=== PATIENT | female | born 1960 | race American Indian/Alaskan Native ===

== ENCOUNTER 2016-09-06 13:51 | Outpatient (CLI) | payer BC ==
--- NOTE | 2016-09-09 08:58 | Mammography Report ---
BILATERAL DIGITAL SCREENING MAMMOGRAM with CAD: 09/06/16 13:51:00 CLINICAL: Routine screening. COMPARISON:01/12/15 FINDINGS: The breasts are heterogeneously dense, which may obscure small masses. No mass, architectural distortion or suspicious calcifications. IMPRESSION: No mammographic evidence of malignancy. BI-RADS CATEGORY: 1 - - Negative RECOMMENDATION: Routine mammographic screening in one year. COMMENT: Patient follow-up letters are generated by our [employer] application.
== END 2016-09-06 13:52 | disposition home or self-care (01) ==
LOC: SPVWC 13:51
PROVIDERS: ATTEND Nurse Practitioner Women's Health
DX: Z12.31 Encounter for screening mammogram for malignant neoplasm of breast (principal)
CPT/HCPCS: 77067; G0202

== ENCOUNTER 2018-01-05 14:02 | Outpatient (CLI) | payer OTHER ==
--- NOTE | 2018-01-06 13:12 | Mammography Report ---
BILATERAL DIGITAL SCREENING MAMMOGRAM with CAD: 01/05/18 14:02:00 CLINICAL: Routine screening. COMPARISON:09/06/16 FINDINGS: The breasts are heterogeneously dense, which may obscure small masses. No mass, architectural distortion or suspicious calcifications. IMPRESSION: No mammographic evidence of malignancy. BI-RADS CATEGORY: 1 - - Negative RECOMMENDATION: Routine mammographic screening in one year. COMMENT: Patient follow-up letters are generated by our [employer] application.
== END 2018-01-05 14:03 | disposition home or self-care (01) ==
LOC: SPVWC 14:02
PROVIDERS: ATTEND Nurse Practitioner Women's Health
DX: Z12.31 Encounter for screening mammogram for malignant neoplasm of breast (principal)
CPT/HCPCS: 77067

== ENCOUNTER 2021-01-03 12:52 | Outpatient (CLI) | payer OTHER ==
--- NOTE | 2021-01-03 17:12 | Mammography Report ---
DIGITAL SCREENING MAMMOGRAM WITH CAD, 01/03/2021 CLINICAL INFORMATION / INDICATION: Routine screening mammography. SCREENING MAMMO Z12.31 TECHNIQUE: Digital bilateral 2D mammography was obtained in the craniocaudal and mediolateral obliqu e projections. This examination was interpreted with the benefit of Computer-Aided Detection analysis . COMPARISON: 01/05/2018 FINDINGS: Breast Density: The breasts are heterogeneously dense, which may obscure small masses. No dominant mass, suspicious calcifications, or architectural distortion in the right breast. There is a focal asymmetric density in the 11:00 position of the left breast which measures approxima tely 12 mm. IMPRESSION: Further evaluation of focal asymmetric density on the left is recommended. Follow up recommendation: Ultrasound with possible spot compression views. BI-RADS Category 0: Incomplete. Needs additional imaging evaluation and/or prior mammograms for savanna hale. A "normal" or negative report should not discourage follow up or biopsy of a clinically significant f inding. A written summary of these findings will be mailed to the patient. The patient will be entered into a mammography reporting system which will generate a reminder letter for the patient's next appointmen t at the appropriate interval. The [employer] recommends yearly mammograms starting at age 40 and continuing as l ann as a woman is in good health. Breast MRI is recommended for women with an approximate 20-25% or greater lifetime risk of breast cancer, including women with a strong family history of breast or ova tomy cancer or who have been treated for Hodgkin's disease. Signer Name: Benedict Deluca MD Signed: 01/03/2021 5:08 PM Workstation Name: [id number]
== END 2021-01-03 12:53 | disposition home or self-care (01) ==
LOC: SPVWC 12:52
PROVIDERS: ATTEND Family Medicine
DX: Z12.31 Encounter for screening mammogram for malignant neoplasm of breast (principal)
CPT/HCPCS: 77067

== ENCOUNTER 2021-01-23 09:12 | Outpatient (CLI) | payer OTHER ==
--- NOTE | 2021-01-23 10:07 | Ultrasound Report ---
LEFT BREAST ULTRASOUND INDICATION: Evaluate finding noted previously in the left breast on the recent screening mammogram. COMPARISON: 01/03/2021, 01/05/2018. FINDINGS: Targeted ultrasound focused in the left upper inner breast was performed to evaluate the si te of a previously noted finding which was seen on the recent screening mammogram. There is an oval l obulated 8 x 10 x 5 mm hypoechoic lesion located at the 11:00 position, 7 cm from the nipple. This wo uld appear to correspond with the mammographic finding. This does not demonstrate the appearance of a benign simple cyst. Ultrasound guided core biopsy is recommended. IMPRESSION: Left breast lesion at 11:00 position for which ultrasound-guided biopsy recommended. BI-RADS Category 4: Suspicious for Malignancy. Signer Name: Barry Ordaz MD Signed: 01/23/2021 10:03 AM Workstation Name: [id number]
--- NOTE | 2021-01-23 13:22 | Mammography Report ---
DEXA BONE DENSITY SCAN INDICATION: MENOPAUSE Z78.0. COMPARISON: None. LUMBAR SPINE (L1-L4): Bone mineral density (BMD) is 0.986 g/cm2. T-score is -1.5 (standard deviations of Young Adult mean). Z-score is -0.1 (standard deviations of Age Matched mean). LEFT FEMORAL NECK: Bone mineral density (BMD) is 0.891 g/cm2. T-score is -0.9 (standard deviations of Young Adult mean). Z-score is -0.2 (standard deviations of Age Matched mean). IMPRESSION: WHO Classification: Osteopenia. Fracture Risk: Increased. Signer Name: Barry Ordaz MD Signed: 01/23/2021 1:18 PM Workstation Name: [id number]
== END 2021-01-23 09:13 | disposition home or self-care (01) ==
LOC: SPVWC 09:12
PROVIDERS: ATTEND Family Medicine
DX: M85.88 Other specified disorders of bone density and structure, other site (principal); R92.8 Other abnormal and inconclusive findings on diagnostic imaging of breast; Z78.0 Asymptomatic menopausal state
CPT/HCPCS: 77080

== ENCOUNTER 2021-02-14 13:28 | Outpatient (CLI) | payer OTHER ==
--- NOTE | 2021-02-14 14:57 | Ultrasound Report ---
ULTRASOUND GUIDED LEFT BREAST BIOPSY, 02/14/2021 LEFT DIAGNOSTIC MAMMOGRAM CLINICAL INFORMATION / INDICATION: LEFT BREAST MASS. COMPARISON: Mammogram from 01/03/2021 and ultrasound from 01/23/2021 PROCEDURE: Risks, benefits, and indications to the procedure were discussed with the patient in detail, includin g bleeding, infection, hematoma formation, and inadequate tissue sampling. The patient agreed to proc eed with both verbal and written consent. A timeout procedure was performed with two patient identifi ers. The breast was prepped and draped in the usual sterile fashion. Lidocaine 1% was used for local anest hesia. Under direct ultrasound guidance, 2 separate 14 gauge core samples were obtained of the left b reast nodule. A biopsy marker was then placed. Biopsy device was removed and hemostasis achieved wit h manual pressure. A sterile dressing was applied to the skin. The patient tolerated the procedure without difficulty. No complications were encountered. Postbiopsy instructions were discussed with the patient and given in writing. Specimens were sent to pathology. The patient was then sent for a confirmatory mammogram to demonstrate adequate clip positioning in th e area in question. IMPRESSION: 1. Technically successful ultrasound guided left breast biopsy. 2. Satisfactory positioning of the biopsy clip on the post procedure mammogram. Biopsy results are pending and will be reported in an addendum. Signer Name: John Machado MD Signed: 02/14/2021 2:52 PM Workstation Name: [id number]
== END 2021-02-14 13:29 | disposition home or self-care (01) ==
LOC: SPVWC 13:28
PROVIDERS: ATTEND Family Medicine
DX: N63.20 Unspecified lump in the left breast, unspecified quadrant (principal); R92.8 Other abnormal and inconclusive findings on diagnostic imaging of breast
CPT/HCPCS: 88305